=== PATIENT | male | born 1965 | race Caucasian/White ===

== ENCOUNTER 2023-02-11 20:12 | Emergency (ER) | payer OTHER ==
[~2023-02-11] VITALS: Ht 182.9 cm; Wt 82.6 kg
--- NOTE | 2023-02-11 20:18 | NUR ---
YOVANNY LEMON [phone]
--- NOTE | 2023-02-11 20:25 | NUR ---
BG 162
--- NOTE | 2023-02-11 20:30 | NUR ---
[id number] FRM HOME FOR SYNCOPAL EPISODE B AT SCENE HX DM 250D10 & 250NS GIVEN BY EMS MAINTENANCE JOB TITLES. PATIENT AOX4 RR EVEN AND UNLABORED, DENIES ANY DISCOMFORT AT THIS TIME, CONNECTD TO POX AND HEART MIONITOR , VITAL SIGNS ARE WITIHIN LIMITS. BG AT BEDSIDE 162, AWAITING MD ORDERS
[2023-02-11 21:45] VITALS: BP 107/70
--- NOTE | 2023-02-11 22:08 | NUR ---
Patient eloped from facility. ER MD notified.
== END 2023-02-11 22:09 | disposition left against medical advice (07) ==
LOC: ER 20:20
DX: R55 Syncope and collapse (principal); Z53.21 Procedure and treatment not carried out due to patient leaving prior to being seen by health care provider
CPT/HCPCS: 82962-TC